=== PATIENT | female | born 1970 | race Caucasian/White ===

== ENCOUNTER 2022-08-23 00:44 | Inpatient (IN) | payer OTHER ==
[~2022-08-23 00:44] MED LIST: Acetaminophen 500 MG TAB ONE; Dextrose 5% in Water 250 ML ONE; Fentanyl 100 MCG/2 ML VIAL ONE; Ketorolac Tromethamine 30 MG/ML VIAL ONE; Lorazepam 2 MG/ML VIAL ONE; Norepinephrine 4 MG/4 ML VIAL ONE; Ondansetron PF 4 MG/2 ML Vial ONE; Sodium Chloride 0.9% 1,000 ML ONE; Sodium Chloride 0.9% 500 ML ONE; Vancomycin 1 GM VIAL ONE; Vancomycin HCl 500 MG VIAL ONE; cefTRIAXone\\ROCEPHIN 1 GM VIAL ONE
[2022-08-23 01:27] LABS: #Lymphocytes 1.9 thou/uL (1.20-3.40); %Basophils 0.2 % (0.0-1.0); %Lymphocytes 11.8 % (21.0-51.0); %Monocytes 12.3 % (0.0-10.0); %Neutrophils 75.7 % (42.0-75.0); Hemoglobin 9.4 g/dL (12.0-16.0); Mean Corpuscular HGB CONC 34.4 g/dL (32.0-36.0); Mean Corpuscular Volume 98.8 fl (78.0-98.0); Mean Platelet Volume 8.2 fL (7.4-10.4); Platelet Count 210 10x3/uL (130-400); RBC Distribution Width 12.5 % (11.5-14.5); Red Blood Cell (RBC) Count 2.76 mill/uL (4.20-5.40); White Blood Cell (WBC) Count 15.8 10x3/uL (4.8-10.8)
[2022-08-23 01:38] LABS: ALT (SGPT) 10 U/L (8-55); AST (SGOT) 14 U/L (5-34); Albumin 3.4 g/dL (3.5-5.0); Alkaline Phosphatase 45 U/L (40-110); Anion Gap 13 mmol/L (10-20); BUN (Urea Nitrogen) 14 mg/dL (9.8-20.1); Bilirubin, Total 0.2 mg/dL (0.2-1.2); Calc. Creatinine Clearance 0 mL/min (70-130); Calcium 7.4 mg/dL (7.8-10.44); Carbon Dioxide 14 mmol/L (22-29); Chloride 113 mmol/L (98-107); Estimated GFR 71; Glucose 149 mg/dL (70-105); Potassium 3.2 mmol/L (3.5-5.1); Protein, Total 5.4 g/dL (6.0-8.3); Sodium 137 mmol/L (136-145)
[2022-08-23] MEDS ORDERED: methylPREDNISolone Sod Succ/PF 125 MG/2 ML VIAL ONE (02:03)
[2022-08-23] MEDS ORDERED: Morphine 4 MG/ML VIAL ONE (02:12)
[2022-08-23] MEDS ORDERED: Calcium Carbonate 500 MG ChewTAB PO PRN (03:23)
[2022-08-23] MEDS ORDERED: NOREPINEPHRINE 8 MG/250 ML-D5W 250 ML IVPB SCH (03:30)
[2022-08-23] MEDS ORDERED: Potassium Chloride 20 MEQ TAB PO SCH ×2 (03:45→04:30)
[2022-08-23] MEDS ORDERED: Electrolyte Replacement Protocol 1 EACH FS PRN (04:09)
[2022-08-23] MEDS ORDERED: Sodium Chloride 0.9% 1,000 ML IV SCH (04:15)
[2022-08-23 04:42] VITALS: BMI 25.7
[2022-08-23] MEDS: Ketorolac Tromethamine 30 MG/ML VIAL IVP SCH ×4 (05:00→22:26)
[2022-08-23] MEDS: Calcium Carbonate 600 MG + Vit D TAB PO SCH (07:52)
[2022-08-23] MEDS: Famotidine 20 MG TAB PO SCH ×2 (07:53→19:51)
[2022-08-23] MEDS: cefTRIAXone\\ROCEPHIN 2 GM in Sodium Chloride 0.9% 100 ML IVPB SCH (07:58)
[2022-08-23] MEDS: Morphine 2 MG/ML VIAL SLOW IVP PRN ×4 (08:12→21:25)
[2022-08-23] MEDS: Famotidine/PF 20 mg/2ml Vial SLOW IVP SCH ×2 (09:51→19:53)
[2022-08-23] MEDS: Ondansetron ODT 4 MG TAB PO PRN ×2 (11:50→22:32)
[2022-08-23] MEDS ORDERED: Melatonin 3 MG TAB PO PRN (19:54)
[2022-08-24] MEDS: Morphine 2 MG/ML VIAL SLOW IVP PRN ×3 (04:00→21:49)
[2022-08-24] MEDS: Ondansetron PF 4 MG/2 ML Vial IVP PRN ×2 (04:00→21:50)
[2022-08-24 07:30] LABS: #Lymphocytes 2.1 thou/uL (1.20-3.40); #Monocytes 1.5 thou/uL (0.11-0.59); #Neutrophils 13.2 thou/uL (1.40-6.50); %Basophils 0.2 % (0.0-1.0); %Eosinophils 0.2 % (0.0-10.0); %Lymphocytes 12.5 % (21.0-51.0); %Monocytes 8.6 % (0.0-10.0); %Neutrophils 78.5 % (42.0-75.0); Mean Corpuscular HGB CONC 33.3 g/dL (32.0-36.0); Mean Corpuscular Hemoglobin 33.7 pg (27.0-31.0); Mean Platelet Volume 8.7 fL (7.4-10.4); Platelet Count 219 10x3/uL (130-400); RBC Distribution Width 12.7 % (11.5-14.5); Red Blood Cell (RBC) Count 2.68 mill/uL (4.20-5.40); White Blood Cell (WBC) Count 16.9 10x3/uL (4.8-10.8)
[2022-08-24] MEDS ORDERED: Ketorolac Tromethamine 30 MG/ML VIAL IVP SCH (07:45)
[2022-08-24 07:53] LABS: Anion Gap 11 mmol/L (10-20); BUN (Urea Nitrogen) 12 mg/dL (9.8-20.1); Calc. Creatinine Clearance 96 mL/min (70-130); Calcium 8.5 mg/dL (7.8-10.44); Carbon Dioxide 19 mmol/L (22-29); Chloride 114 mmol/L (98-107); Estimated GFR 93; Glucose 119 mg/dL (70-105); Magnesium 1.8 mg/dL (1.6-2.6); Potassium 3.6 mmol/L (3.5-5.1); Sodium 140 mmol/L (136-145)
[2022-08-24] MEDS ORDERED: Promethazine HCl 12.5 MG in Sodium Chloride 0.9% 50 ML IVPB SCH ×3 (08:00→22:30)
[2022-08-24] MEDS ORDERED: Magnesium 2 GM/50 ML(in water) 2 GM in Premix Bag 1 BAG IVPB SCH (09:00)
[2022-08-24] MEDS: cefTRIAXone\\ROCEPHIN 2 GM in Sodium Chloride 0.9% 100 ML IVPB SCH (10:54)
[2022-08-24] MEDS: Fentanyl 100 MCG/2 ML VIAL SLOW IVP SCH ×2 (13:24→14:21)
[2022-08-24] MEDS ORDERED: Fentanyl 100 MCG/2 ML VIAL SLOW IVP SCH (14:30)
[2022-08-24] MEDS: Calcium Carbonate 600 MG + Vit D TAB PO SCH (15:00)
[2022-08-24] MEDS ORDERED: Meropenem 1 GM in Sodium Chloride 0.9% 100 ML IVPB SCH ×2 (16:15→22:00)
[2022-08-24] MEDS: diphenhydrAMINE 25 MG in Sodium Chloride 0.9% 50 ML IVPB SCH ×2 (17:12→23:59)
[2022-08-24] MEDS: Prochlorperazine Edisylate 10 MG in Sodium Chloride 0.9% 50 ML IVPB SCH ×2 (17:13→23:59)
[2022-08-24] MEDS: Fentanyl 100 MCG/2 ML VIAL SLOW IVP PRN (18:28)
[2022-08-24] MEDS: Sodium Chloride 0.9% 1,000 ML IV SCH (19:00)
[2022-08-24] MEDS: Acetaminophen 325 MG TAB PO PRN (22:19)
[2022-08-25] MEDS: Fentanyl 100 MCG/2 ML VIAL SLOW IVP PRN ×5 (00:07→20:56)
[2022-08-25] MEDS: Meropenem 1 GM in Sodium Chloride 0.9% 100 ML IVPB SCH ×2 (00:08→09:50)
[2022-08-25] MEDS: Acetaminophen 325 MG TAB PO PRN ×2 (03:03→20:56)
[2022-08-25] MEDS: Sodium Chloride 0.9% 1,000 ML IV SCH ×2 (04:49→12:56)
[2022-08-25] MEDS: Prochlorperazine Edisylate 10 MG in Sodium Chloride 0.9% 50 ML IVPB SCH ×4 (05:50→23:05)
[2022-08-25] MEDS: diphenhydrAMINE 25 MG in Sodium Chloride 0.9% 50 ML IVPB SCH ×2 (05:50→12:55)
[2022-08-25 06:16] LABS: #Lymphocytes 1.8 thou/uL (1.20-3.40); #Monocytes 1.1 thou/uL (0.11-0.59); #Neutrophils 5.9 thou/uL (1.40-6.50); %Basophils 0.4 % (0.0-1.0); %Eosinophils 0.4 % (0.0-10.0); %Lymphocytes 19.9 % (21.0-51.0); %Monocytes 12.6 % (0.0-10.0); %Neutrophils 66.7 % (42.0-75.0); Hemoglobin 8.7 g/dL (12.0-16.0); Mean Corpuscular HGB CONC 33.8 g/dL (32.0-36.0); Mean Corpuscular Hemoglobin 33.8 pg (27.0-31.0); Mean Platelet Volume 8.7 fL (7.4-10.4); Platelet Count 224 10x3/uL (130-400); RBC Distribution Width 12.7 % (11.5-14.5); Red Blood Cell (RBC) Count 2.56 mill/uL (4.20-5.40); White Blood Cell (WBC) Count 8.9 10x3/uL (4.8-10.8)
[2022-08-25 07:02] LABS: Chloride 108 mmol/L (98-107); Potassium 2.9 mmol/L (3.5-5.1); Sodium 140 mmol/L (136-145)
[2022-08-25 07:03] LABS: Calcium 8.2 mg/dL (7.8-10.44); Glucose 105 mg/dL (70-105)
[2022-08-25 07:04] LABS: Carbon Dioxide 24 mmol/L (22-29)
[2022-08-25 07:05] LABS: Anion Gap 11 mmol/L (10-20)
[2022-08-25 07:07] LABS: BUN (Urea Nitrogen) 7 mg/dL (9.8-20.1); Calc. Creatinine Clearance 115 mL/min (70-130); Estimated GFR 107
[2022-08-25] MEDS: Morphine 2 MG/ML VIAL SLOW IVP PRN ×3 (07:46→22:21)
[2022-08-25] MEDS: Potassium Bicarbonate/Cit Ac 20 MEQ TAB PO SCH ×2 (09:49→12:56)
[2022-08-25] MEDS: Calcium Carbonate 600 MG + Vit D TAB PO SCH (09:49)
[2022-08-25] MEDS: Folic Acid/Vit B Comp W-C PO SCH (09:49)
[2022-08-25] MEDS: cefTRIAXone\\ROCEPHIN 2 GM in Sodium Chloride 0.9% 100 ML IVPB SCH (09:49)
[2022-08-25] MEDS: Senokot S 8.6-50 MG TAB PO PRN (21:03)
[2022-08-26] MEDS: Fentanyl 100 MCG/2 ML VIAL SLOW IVP PRN ×6 (01:11→20:38)
[2022-08-26] MEDS: Acetaminophen 325 MG TAB PO PRN ×6 (02:17→22:32)
[2022-08-26] MEDS: Morphine 2 MG/ML VIAL SLOW IVP PRN ×6 (02:17→22:33)
[2022-08-26] MEDS: Sodium Chloride 0.9% 1,000 ML IV SCH ×2 (05:01→09:05)
[2022-08-26] MEDS: Prochlorperazine Edisylate 10 MG in Sodium Chloride 0.9% 50 ML IVPB SCH ×3 (05:01→18:31)
[2022-08-26 06:42] LABS: Hemoglobin 9.3 g/dL (12.0-16.0); Mean Corpuscular HGB CONC 34.4 g/dL (32.0-36.0); Mean Corpuscular Hemoglobin 34.5 pg (27.0-31.0); Mean Platelet Volume 8.1 fL (7.4-10.4); Platelet Count 233 10x3/uL (130-400); RBC Distribution Width 12.4 % (11.5-14.5); White Blood Cell (WBC) Count 6.7 10x3/uL (4.8-10.8)
[2022-08-26 06:45] LABS: Anion Gap 9 mmol/L (10-20); BUN (Urea Nitrogen) 6 mg/dL (9.8-20.1); Calc. Creatinine Clearance 110 mL/min (70-130); Calcium 8.4 mg/dL (7.8-10.44); Carbon Dioxide 29 mmol/L (22-29); Chloride 103 mmol/L (98-107); Estimated GFR 106; Glucose 95 mg/dL (70-105); Potassium 3.2 mmol/L (3.5-5.1); Sodium 138 mmol/L (136-145)
[2022-08-26] MEDS ORDERED: Potassium Chloride 20 MEQ TAB PO SCH (08:45)
[2022-08-26] MEDS ORDERED: FLU VACC QS2022-23(6MOS UP)/PF 60 MCG/0.5 ML SYRINGE IM ONE (09:00)
[2022-08-26] MEDS: Senokot S 8.6-50 MG TAB PO PRN (09:04)
[2022-08-26] MEDS: Folic Acid/Vit B Comp W-C PO SCH (09:04)
[2022-08-26] MEDS: Calcium Carbonate 600 MG + Vit D TAB PO SCH (09:04)
[2022-08-26] MEDS: cefTRIAXone\\ROCEPHIN 2 GM in Sodium Chloride 0.9% 100 ML IVPB SCH (09:04)
[2022-08-26 11:01] LABS: Band 2 % (5-11); Eosinophils 1 % (0-10); Lymphocytes 31 % (21-51); MDiff Complete? YES; Monocytes 17 % (0-10); Neutrophil 49 % (42-75); Polychromasia SLIGHT = 2-3 cells (100X) (0-2/hpf)
[2022-08-26] MEDS ORDERED: SUMAtriptan Succinate 6 MG/0.5 ML VIAL SC SCH (15:00)
[2022-08-27] MEDS: Prochlorperazine Edisylate 10 MG in Sodium Chloride 0.9% 50 ML IVPB SCH ×5 (00:29→23:27)
[2022-08-27] MEDS: Fentanyl 100 MCG/2 ML VIAL SLOW IVP PRN ×4 (00:30→12:56)
[2022-08-27] MEDS: Acetaminophen 325 MG TAB PO PRN ×4 (02:31→15:40)
[2022-08-27] MEDS: Morphine 2 MG/ML VIAL SLOW IVP PRN ×4 (02:32→21:24)
[2022-08-27] MEDS: Calcium Carbonate 600 MG + Vit D TAB PO SCH (08:48)
[2022-08-27] MEDS: Folic Acid/Vit B Comp W-C PO SCH (08:48)
[2022-08-27] MEDS: cefTRIAXone\\ROCEPHIN 2 GM in Sodium Chloride 0.9% 100 ML IVPB SCH (08:49)
[2022-08-27] MEDS: HYDROcodone/Acetaminophen 5/325 mg Tablet PO PRN ×2 (18:28→23:26)
[2022-08-27] MEDS ORDERED: Cefpodoxime 200 MG TAB PO SCH (21:00)
[2022-08-27] MEDS: Cefdinir 300 MG CAP PO SCH (21:21)
[2022-08-28] MEDS: HYDROcodone/Acetaminophen 5/325 mg Tablet PO PRN ×2 (05:34→09:33)
[2022-08-28] MEDS: Prochlorperazine Edisylate 10 MG in Sodium Chloride 0.9% 50 ML IVPB SCH (05:37)
[2022-08-28 06:12] LABS: Hemoglobin 10.5 g/dL (12.0-16.0); Mean Corpuscular HGB CONC 33.1 g/dL (32.0-36.0); Mean Corpuscular Hemoglobin 33.2 pg (27.0-31.0); Mean Platelet Volume 7.9 fL (7.4-10.4); Platelet Count 305 10x3/uL (130-400); RBC Distribution Width 12.6 % (11.5-14.5); Red Blood Cell (RBC) Count 3.18 mill/uL (4.20-5.40); White Blood Cell (WBC) Count 8.7 10x3/uL (4.8-10.8)
[2022-08-28 06:27] LABS: Anion Gap 13 mmol/L (10-20); BUN (Urea Nitrogen) 11 mg/dL (9.8-20.1); Calc. Creatinine Clearance 101 mL/min (70-130); Calcium 8.7 mg/dL (7.8-10.44); Carbon Dioxide 24 mmol/L (22-29); Chloride 105 mmol/L (98-107); Estimated GFR 100; Glucose 129 mg/dL (70-105); Potassium 3.3 mmol/L (3.5-5.1); Sodium 139 mmol/L (136-145)
[2022-08-28 07:29] LABS: Band 4 % (5-11); Eosinophils 1 % (0-10); Lymphocytes 44 % (21-51); MDiff Complete? YES; Macrocytosis SLIGHT = 6-15 cells (100X) (0-5/hpf); Monocytes 11 % (0-10); Neutrophil 37 % (42-75); Platelet Morphology Comment Appears Adequate; Polychromasia SLIGHT = 2-3 cells (100X) (0-2/hpf); Reactive Lymphocytes 3 % (0-10)
[2022-08-28] MEDS ORDERED: Potassium Chloride 20 MEQ TAB PO SCH (08:00)
[2022-08-28] MEDS: Calcium Carbonate 600 MG + Vit D TAB PO SCH (08:50)
[2022-08-28] MEDS: Cefdinir 300 MG CAP PO SCH (08:50)
[2022-08-28] MEDS: Folic Acid/Vit B Comp W-C PO SCH (08:50)
[2022-08-28 11:57] VITALS: BP 128/73; TEMP 97.9
== END 2022-08-28 11:35 | disposition home or self-care (01) | DRG 871 ==
LOC: ERS 00:44 → CCU 03:25 → T4-B 16:39
PROVIDERS: ADMIT Internal Medicine; ATTEND Internal Medicine
PROC: 3E03329 Introduction of Other Anti-infective into Peripheral Vein, Percutaneous Approach (ICD-10-PCS; principal; 2022-08-23)
PROC: 3E033XZ Introduction of Vasopressor into Peripheral Vein, Percutaneous Approach (ICD-10-PCS; 2022-08-23)
DX: A41.51 Sepsis due to Escherichia coli [E. coli] (principal); R65.21 Severe sepsis with septic shock; N12 Tubulo-interstitial nephritis, not specified as acute or chronic; E87.6 Hypokalemia; F41.9 Anxiety disorder, unspecified; F32.A Depression, unspecified; D64.9 Anemia, unspecified; E83.51 Hypocalcemia; E86.1 Hypovolemia; Z88.1 Allergy status to other antibiotic agents; Z88.2 Allergy status to sulfonamides; Z88.8 Allergy status to other drugs, medicaments and biological substances; Z90.710 Acquired absence of both cervix and uterus; Z90.722 Acquired absence of ovaries, bilateral
CPT/HCPCS: 36415; 36416; 36556; 51702; 70450; 71045; 74176; 80048; 80053; 82607; 83605; 83735; 84484; 85025; 87086; 93005; 96365; 96366; 96374; 96375; J0696; J0780; J1200; J1650; J1885; J2060; J2185; J2270; J2272; J2405; J2550; J2930; J3010; J3030; J3370; J3475; J3490; J7030; J7050; J7070; Q0162